=== PATIENT | female | born 2000 | race Caucasian/White ===

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

== ENCOUNTER → 2022-01-04 | Outpatient (CLI) | payer OTHER ==
[2022-01-04 14:17] LABS: BASO % 0.3 % (0.0-1.0); EOS # 0.1 10^3/uL (0.0-0.5); EOS % 0.6 % (0.0-3.0); HEMATOCRIT 41.9 % (36.0-47.0); HEMOGLOBIN 13.4 g/dl (12.0-15.5); LYMPH # 1.3 10^3/uL (1.5-5.0); LYMPH % 11.8 % (24.0-44.0); MEAN CORPUSCULAR HEMOGLOBIN 27.5 pg (27.0-33.0); MONO # 0.4 10^3/uL (0.0-0.8); NEUTROPHILS # 8.9 10^3/uL (1.5-8.5); NEUTROPHILS % 82.9 % (36.0-66.0); PLATELET COUNT, AUTOMATED 353 10^3/uL (150-450); RED BLOOD COUNT 4.87 10^6/uL (4.00-5.40); WHITE BLOOD COUNT 10.7 10^3/uL (4.0-10.0)
[2022-01-04 15:07] LABS: HEPATITIS C VIRUS ABY INDEX < 0.0 INDEX (<0.8); HIV 1&2 SCREEN CENTAUR NEGATIVE (NEGATIVE)
[2022-01-04 15:31] LABS: GC DNA AMPLIFICATION NEGATIVE (NEGATIVE)
== END ==
LOC: M PLALAB 10:29
PROVIDERS: ATTEND Advanced Practice Midwife
DX: Z34.01 Encounter for supervision of normal first pregnancy, first trimester (principal)

== ENCOUNTER → 2022-02-08 | Outpatient (CLI) | payer OTHER | LOC: M WHC 09:01 | PROVIDERS: ATTEND Advanced Practice Midwife | DX: Z34.02 Encounter for supervision of normal first pregnancy, second trimester (principal); Z3A.18 18 weeks gestation of pregnancy ==

== ENCOUNTER → 2022-03-17 | Outpatient (CLI) | payer OTHER | LOC: M WHC 08:34 | PROVIDERS: ATTEND Advanced Practice Midwife | DX: Z34.82 Encounter for supervision of other normal pregnancy, second trimester (principal) ==

== ENCOUNTER → 2022-03-30 | Outpatient (CLI) | payer OTHER ==
[2022-03-30 14:07] LABS: HEMOGLOBIN 11.9 g/dl (12.0-15.5); MEAN CORPUSCULAR HEMOGLOBIN 28.1 pg (27.0-33.0); MEAN CORPUSCULAR HGB CONC 31.3 g/dl (32.0-36.5); MEAN CORPUSCULAR VOLUME 89.8 fl (80.0-96.0); PLATELET COUNT, AUTOMATED 336 10^3/uL (150-450); RED BLOOD COUNT 4.23 10^6/uL (4.00-5.40); WHITE BLOOD COUNT 10.4 10^3/uL (4.0-10.0)
[2022-03-30 15:52] LABS: GC DNA AMPLIFICATION NEGATIVE (NEGATIVE)
== END ==
LOC: M PLALAB 10:45
PROVIDERS: ATTEND Advanced Practice Midwife
DX: Z34.02 Encounter for supervision of normal first pregnancy, second trimester (principal); Z3A.00 Weeks of gestation of pregnancy not specified

== ENCOUNTER → 2022-04-14 | Outpatient (CLI) | payer OTHER | LOC: M WHC 09:57 | PROVIDERS: ATTEND Obstetrics & Gynecology | DX: O10.912 Unspecified pre-existing hypertension complicating pregnancy, second trimester (principal) ==

== ENCOUNTER 2022-04-16 19:05 | Emergency (ER) | payer OTHER ==
[~2022-04-16] VITALS: Ht 175.3 cm; Wt 114.5 kg
[2022-04-16 20:58] LABS: HEMATOCRIT 33.1 % (36.0-47.0); HEMOGLOBIN 11.1 g/dl (12.0-15.5); MEAN CORPUSCULAR HEMOGLOBIN 28.6 pg (27.0-33.0); MEAN CORPUSCULAR HGB CONC 33.5 g/dl (32.0-36.5); MEAN CORPUSCULAR VOLUME 85.3 fl (80.0-96.0); PLATELET COUNT, AUTOMATED 334 10^3/uL (150-450); RED BLOOD COUNT 3.88 10^6/uL (4.00-5.40); WHITE BLOOD COUNT 13.2 10^3/uL (4.0-10.0)
[2022-04-16 21:25] LABS: BLOOD UREA NITROGEN 6 MG/DL (9-23); CARBON DIOXIDE LEVEL 18 MMOL/L (20-31); CHLORIDE LEVEL 113 MMOL/L (98-107); CREATININE FOR GFR 0.44 MG/DL (0.55-1.30); GLUCOSE, FASTING 82 MG/DL (60-100); POTASSIUM SERUM 3.4 MMOL/L (3.5-5.1); SODIUM LEVEL 142 MMOL/L (136-145)
[2022-04-16 22:06] LABS: INR 1.02; PROTHROMBIN TIME 13.6 SECONDS (12.5-14.5)
[2022-04-16 22:07] LABS: PARTIAL THROMBOPLASTIN TIME 28.6 SECONDS (24.8-34.2)
[2022-04-16 23:15] VITALS: BP 111/58
== END 2022-04-16 23:35 | disposition home or self-care (01) ==
LOC: M ED 19:05 → EDBD 19:05 → M ED 23:35
DX: O9A.213 Injury, poisoning and certain other consequences of external causes complicating pregnancy, third trimester (principal); S30.1XXA Contusion of abdominal wall, initial encounter; V49.40XA Driver injured in collision with unspecified motor vehicles in traffic accident, initial encounter; Z3A.29 29 weeks gestation of pregnancy; Z88.0 Allergy status to penicillin; Z88.1 Allergy status to other antibiotic agents; Z79.899 Other long term (current) drug therapy

== ENCOUNTER → 2022-05-27 | Outpatient (CLI) | payer OTHER | LOC: M WHC 13:30 | PROVIDERS: ATTEND Advanced Practice Midwife | DX: O10.913 Unspecified pre-existing hypertension complicating pregnancy, third trimester (principal); Z3A.34 34 weeks gestation of pregnancy ==

== ENCOUNTER → 2022-06-01 | Outpatient (REF) | payer OTHER | LOC: M PLALAB 11:39 | PROVIDERS: ATTEND Advanced Practice Midwife | DX: O10.013 Pre-existing essential hypertension complicating pregnancy, third trimester (principal) ==

== ENCOUNTER → 2025-04-28 | Outpatient (CLI) | payer OTHER ==
[~2025-04-28] MED LIST changes: +ACET-683 PO; +ASPI81CH33 PO; +IBUP600T42 PO; +LABE100T40 PO; +ONDA-282 PO; -ONDA4TAB6 PO
== END ==
LOC: M RAD 13:48
PROVIDERS: ATTEND Physician Assistant
DX: R10.32 Left lower quadrant pain (principal); N83.202 Unspecified ovarian cyst, left side